=== PATIENT | female | born 1995 | race African-American/Black ===

== ENCOUNTER 2019-05-10 13:43 | Emergency (ER) | payer SELFPAY ==
[~2019-05-10] VITALS: Ht 165.1 cm; Wt 54.0 kg
[2019-05-10] MEDS ORDERED: PRENATAL 19 TA1 EAC1 PO (13:54)
--- NOTE | 2019-05-10 13:55 | NUR ---
ED Nurse Note: Patient walked into ED c/o intermittent cramping pain on the lower abdomen and spotting since this morning. patient's LMP 02/22/19 and patient reports she found out that she is last week. 1 para 0 patient is alert awake x4 ambulatory breathing unlabored and even.
--- NOTE | 2019-05-10 14:19 | NUR ---
ED Nurse Note: BEDSIDE U/S being done
[2019-05-10 14:25] LABS: APPEARANCE,URINE CLEAR; BILIRUBIN, URINE NEGATIVE (NEGATIVE); COLOR,URINE PALE YELLOW; GLUCOSE, URINE (UA) NEGATIVE (NEGATIVE); KETONES,URINE NEGATIVE (NEGATIVE); LEUKOCYTE ESTERASE ,URINE NEGATIVE (NEGATIVE); NITRITE,URINE NEGATIVE (NEGATIVE); PH,URINE 8 (4.5-8.0); PROTEIN,URINE NEGATIVE (NEGATIVE); UROBILINOGEN,URINE NORMAL MG/DL (0.0-1.0)
[2019-05-10 14:28] LABS: BASOPHILS % (AUTO) 0.8 % (0.0-2.0); EOSINOPHILS % (AUTO) 0.9 % (0.0-3.0); HEMATOCRIT 42.2 % (37.0-47.0); HEMOGLOBIN 14.3 G/DL (12.0-16.0); MEAN CORPUSCULAR VOLUME 90 FL (80-99); MONOCYTES % (AUTO) 11.2 % (1.0-10.0); NEUTROPHILS % (AUTO) 58.2 % (45.0-75.0); PLATELET COUNT 260 K/UL (150-450); RED BLOOD COUNT 4.67 M/UL (4.20-5.40); RED CELL DISTRIBUTION WIDTH 10.7 % (11.6-14.8); WHITE BLOOD COUNT 7.6 K/UL (4.8-10.8)
[2019-05-10 14:38] LABS: ANION GAP 8 mmol/L (5-15); BLOOD UREA NITROGEN 9 mg/dL (7-18); CALCIUM 9.3 MG/DL (8.5-10.1); CARBON DIOXIDE 27 MMOL/L (21-32); CHLORIDE 101 MMOL/L (98-107); CREATININE 0.7 MG/DL (0.55-1.30); POTASSIUM 3.6 MMOL/L (3.5-5.1); SODIUM 136 MMOL/L (136-145)
[2019-05-10 14:43] LABS: ALANINE AMINOTRANSFERASE 12 U/L (12-78); ALBUMIN 4.3 G/DL (3.4-5.0); ALBUMIN/GLOBULIN RATIO 1.3 (1.0-2.7); ALKALINE PHOSPHATASE 51 U/L (46-116); ASPARTATE AMINO TRANSFERASE 11 U/L (15-37); BILIRUBIN,TOTAL 0.7 MG/DL (0.2-1.0)
--- NOTE | 2019-05-10 15:27 | Diagnostic Imaging Report ---
Indication: Vaginal bleeding Technique: Grayscale and duplex Doppler imaging of the pelvis performed utilizing a transabdominal scan and endovaginal scan. Comparison: None Findings: Single living IUP 6 weeks 2 days gestational age demonstrated with yolk sac and heart motion. Normal contour size and echogenicity of the uterus demonstrated. There is good dopplerable blood flow within the right ovary which appears normal. Left ovary is not seen. Uterus measures 8.4 x 6.4 x 4.9 cm. Right ovary 2.3 x 2.2 x 2.0 cm. IMPRESSION: Single living IUP 6 weeks 2 days gestational age.
--- NOTE | 2019-05-10 15:59 | Emergency Room Report ---
History of Present Illness General Chief Complaint: Complications Source: Patient Present Illness HPI 24-year-old female with no significant past medical history who is A0 here complaining of 1 day of vaginal spotting cramping. Patient has not been seen by an ADOPTION AGENT yet and reports her last menstrual period was February 22, 2019. Patient that she is on May 05. Has not seen any physician for her symptoms yet. Has been taking vitamins. Denies drinking alcohol, smoking, or any other medications. Denies syncope, fatigue, chest pain, shortness of breath, palpitation, nausea vomiting. Patient is rating the pain cramping 3 out of 10 upon palpation of her suprapubic area denies urinary frequency and dysuria. Denies pain radiation, tingling numbness. Denies vaginal clotting. Allergies: Coded Allergies: No Known Allergies (Unverified , 05/10/19) Patient History Past Medical History: see triage record Past Surgical History: unable to obtain Pertinent Family History: none Last Menstrual Period: 02/22/19 Now: Yes : 1 Immunizations: UTD Reviewed Nursing Documentation: PMH: Agreed; PSxH: Agreed Nursing Documentation-PMH Past Medical History: No Stated History Review of Systems All Other Systems: negative except mentioned in HPI Physical Exam Vital Signs Date Time Temp Pulse Resp B/P (MAP) Pulse Ox O2 Delivery O2 Flow Rate FiO2 05/10/19 13:49 97.9 85 18 118/80 (93) 99 Room Air Sp02 EP Interpretation: reviewed, normal General Appearance: normal inspection, well appearing, no apparent distress, alert, GCS 15 Head: normocephalic, atraumatic Eyes: bilateral eye normal inspection, bilateral eye PERRL ENT: normal ENT inspection, hearing grossly normal, normal pharynx Neck: normal inspection, full range of motion, supple, thyroid normal Respiratory: normal inspection, chest non-tender, lungs clear, no rhonchi, no respiratory distress, no wheezing Cardiovascular #1: normal inspection, normal peripheral pulses, regular rate, rhythm, no edema, no murmur, normal capillary refill Gastrointestinal: normal inspection, non tender, soft, no mass, no organomegaly , no peritonitis, no bruit, no guarding Rectal: deferred Genitourinary: no CVA tenderness, ext genitalia/vag normal Musculoskeletal: normal inspection, back normal, digits/nails normal, gait/ station normal Neurologic: normal inspection, alert, oriented x3, scalloper III-XII nml as tested Psychiatric: normal inspection, judgement/insight normal, memory normal Skin: palpation normal, normal color Lymphatic: normal inspection, no adenopathy Medical Decision Making PA Attestation All my diagnosis and treatment plans were reviewed ad discussed with my supervising physician Dr. Aguirre Diagnostic Impression: Primary Impression: Abdominal pain during ER Course 24-year-old female with no significant past medical history who is A0 here complaining of 1 day of vaginal spotting cramping. Patient has not been seen by an ADOPTION AGENT yet and reports her last menstrual period was February 22, 2019. Patient that she is on May 05. Has not seen any physician for her symptoms yet. Has been taking vitamins. Denies drinking alcohol, smoking, or any other medications. Denies syncope, fatigue, chest pain, shortness of breath, palpitation, nausea vomiting. Patient is rating the pain cramping 3 out of 10 upon palpation of her suprapubic area denies urinary frequency and dysuria. Denies pain radiation, tingling numbness. Denies vaginal clotting. Ddx considered but are not limited to: Threatened , ectopic , complications with , abdominal pain during Vital signs: are WNL, pt. is afebrile H&PE are most consistent with: Uncomplicated abdominal pain during ORDERS:, CMP, UA, hCG quantitative, type and screen, OB ultrasound ED INTERVENTIONS: None required at this time. DISCHARGE: At this time pt. is stable for d/c to home. Will provide printed patient care instructions, and any necessary prescriptions. Care plan and follow up instructions have been discussed with the patient prior to discharge. Follow-up with ADOPTION AGENT for further assessment in 48 hours compared to the results of beta hCG as well as OB ultrasound continue taking vitamins avoid lifting heavy object if excess vaginal bleeding or clotting and pain return to the emergency room CT/MRI/US Diagnostic Results CT/MRI/US Diagnostic Results : Imaging Test Ordered: OB ultrasound Impression Single intrauterine with heart rate of 139 no subchorionic hemorrhage no abnormalities noted patient is 6 weeks and 2 days Last Vital Signs Date Time Temp Pulse Resp B/P (MAP) Pulse Ox O2 Delivery O2 Flow Rate FiO2 05/10/19 13:49 97.9 85 18 118/80 (93) 99 Room Air Disposition: HOME, SELF-CARE Condition: Stable Referrals: NOT CHOSEN [facility]/MD,REFERRING (PCP) Patient Instructions: Abdominal Pain During , [id number] Additional Instructions: Follow-up with your ADOPTION AGENT for further assessment at this time no risk of miscarriage noted if heavy bleeding clotting pain or syncope return to the emergency room take Tylenol as needed for pain avoid Advil and ibuprofen. Continue taking her vitamins. Katherine Tirado May 10, 2019 15:59
--- NOTE | 2019-05-10 16:01 | NUR ---
ER DISCHARGE NOTE: Patient is cleared to be discharged per SHANNA GOLD, pt is aox4, on room air, with stable vital signs. pt was given dc and prescription instructions, pt was able to verbalize understanding, pt id band removed without complications. pt is able to ambulate with steady gait. pt took all belongings.
[2019-05-10 16:08] VITALS: BP 118/80
--- NOTE | 2019-05-10 16:08 | NUR ---
ER DISCHARGE NOTE: Patient is cleared to be discharged per SHANNA GOLD, pt is aox4, on room air, with stable vital signs. pt was given dc and prescription instructions, pt was able to verbalize understanding, pt id band and removed without complications. pt is able to ambulate with steady gait. pt took all belongings.
== END 2019-05-10 16:08 | disposition home or self-care (01) ==
LOC: EMR 15:50
DX: O26.91 Pregnancy related conditions, unspecified, first trimester (principal); Z3A.01 Less than 8 weeks gestation of pregnancy; O26.851 Spotting complicating pregnancy, first trimester
CPT/HCPCS: 36415; 76801; 76830; 80053; 81001; 84702; 85025; 86850; 86900; 86901; 99284